=== PATIENT | female | born 1960 | race Caucasian/White ===

== ENCOUNTER 2017-03-19 14:24 | Outpatient (CLI) ==
[2012-10-31 09:43] VITALS: TEMP 97.6; BMI 23.9
--- NOTE | 2017-03-21 09:03 | MAMMO ---
EXAM: Bilateral digital screening mammogram (2-D and 3-D) History: Screening Comparison: Bilateral mammogram 02/09/2016 Findings: MLO and CC views of bilateral breast demonstrate scattered fibroglandular breast parenchym a. CAD was reviewed by the radiologist. Tomosynthesis was performed. Stable benign bilateral breas t calcifications is stable benign bilateral breast lymph nodes. There are no developing masses, no s uspicious microcalcifications and no architectural distortions Impression: Benign stable mammogram. Recommend followup routine screening mammography in 1 year. BIRADS 2
== END 2017-03-19 14:25 | disposition home or self-care (01) ==
LOC: RAD 14:24
PROVIDERS: ATTEND Family Medicine
DX: Z12.31 Encounter for screening mammogram for malignant neoplasm of breast (principal)
CPT/HCPCS: 77067

== ENCOUNTER 2018-03-04 14:21 | Outpatient (CLI) ==
[2012-10-31 09:43] VITALS: TEMP 97.6; BMI 23.9
--- NOTE | 2018-03-05 08:03 | US ---
EXAM: Ultrasound thyroid. HISTORY: Goiter. COMPARISON: 12/13/2011. TECHNIQUE: Javier-scale and color Doppler images. FINDINGS: The right lobe of the thyroid measures 4.6 x 2.2 x 2 cm. There is heterogeneous echogenicity with mul tiple nodules. The largest nodule is solid hypoechoic measuring approximately 1.9 x 1.38 x 0.9 cm wi th internal calcifications. The thyroid isthmus measures 1.2 cm. The left lobe of the thyroid measures 5.1 x 2 x 5 x 2 cm. There is heterogeneous echogenicity with m ultiple nodules. The largest nodule is solid hypoechoic with ill-defined margins measuring approxima tely 2.7 x 2 x 1.3 cm with internal calcifications. Since the prior study, the largest right-sided nodule appears new. The largest left nodule is not si gnificantly changed in size although the calcifications appear new. IMPRESSION: Bilateral thyroid nodules as described. Consider percutaneous sampling of the largest in each lobe g iven the interval change.
== END 2018-03-04 14:22 | disposition home or self-care (01) ==
LOC: RAD 14:21
PROVIDERS: ATTEND Family Medicine
DX: E04.9 Nontoxic goiter, unspecified (principal)

== ENCOUNTER 2018-04-01 15:03 | Outpatient (CLI) ==
[2012-10-31 09:43] VITALS: TEMP 97.6; BMI 23.9
--- NOTE | 2018-04-03 09:42 | MAMMO ---
EXAM: Bilateral digital screening mammogram (2-D and 3-D) History: Bilateral mammogram 03/19/2017 Findings: MLO and CC views of bilateral breasts demonstrate scattered fibroglandular breast parenchy ma. CAD was reviewed by the radiologist. Tomosynthesis was performed. Stable benign bilateral ro[address] st calcifications and stable benign bilateral breast lymph nodes. There are no developing masses, no suspicious microcalcifications and no architectural distortions Impression: Benign stable mammogram. Recommend followup routine screening mammography in 1 year. BIRADS 2
== END 2018-04-01 15:04 | disposition home or self-care (01) ==
LOC: RAD 15:03
PROVIDERS: ATTEND Family Medicine
DX: Z12.31 Encounter for screening mammogram for malignant neoplasm of breast (principal)

== ENCOUNTER 2018-06-03 08:16 | Emergency (ER) ==
[2018-06-03 08:26] VITALS: BP 135/76; TEMP 97.7; BMI 26.8
--- NOTE | 2018-06-03 08:51 | DI ---
EXAM: Two views of the chest. History: Cough. Findings: Heart size is normal. No focal consolidation. No appreciable pleural fluid and no pneumo thorax. No acute osseous abnormalities. Impression: No acute cardiopulmonary process
--- NOTE | 2018-06-03 09:12 | CT ---
EXAM: CT of the head without contrast History: Dizziness. Comparison: Head CT 10/31/2012 Technique: Multiplanar CT images through the head were obtained without the administration of IV con trast Findings: The visualized paranasal sinuses and mastoid air cells are clear in general. No acute calv arial abnormalities. Intracranially the ventricular and cisternal spaces are normal in size, shape and configuration for a patient of this age. No dominant mass or midline shift. No hydrocephalous. No acute intracranial hemorrhage or abnormal extraaxial fluid collections. Impression: No acute intracranial process.
--- NOTE | 2018-06-03 10:16 | ED.PDOC ---
General ED Provider: Dr. IVY BARBA Chief Complaint: Dizziness Stated Complaint: dizziness Time Seen by Physician: 08:30 (no injury reported seen with her nurse at all times ) Mode of Arrival: Walk-In Information Source: Patient Exam Limitations: No limitations Primary Care Provider: MAURA HAWKINS Referred to ED by: Other (no cva symptoms) Nursing and Triage Documentation Reviewed and Agree: Yes Does patient meet sepsis criteria?: No System Inflammatory Response Syndrome: Not Applicable Sepsis Protocol: For patient's 13 years and over: Temp is 96.8 and below OR 101 and greater Pulse >90 BPM Resp >20/minute Acutely Altered Mental Status Are patient's symptoms suggestive of a new infection, such as: -Pneumonia -Skin, Soft Tissue -Endocarditis -UTI -Bone, Joint Infection -Implantable Device -Acute Abdominal Infection -Wound Infection -Meningitis -Blood Stream Catheter Infection -Unknown Neurological Complaint Exam - Dizziness Complaint/Exam Last Known Well: 4 days Onset: Gradual Duration: present Symptoms Are: Resolved Timing: Intermittent Episodes Lasting: Days Initial Severity: Mild Current Severity: None Character: Reports: Dizzy Aggravating: Reports: Change in head position Alleviating: Reports: Rest Associated Signs and Symptoms: Denies: Nausea, Vomiting, Diaphoresis, Tinnitus, Chest pain, Short of air, Palpitations, Unsteady gait, GI blood loss, Visual changes, Decreased oral intake, Change in medication, Change in diet, OTC meds, Loss of balance Review of Systems - Review Of Systems Constitutional: Reports: No symptoms Eyes: Reports: No symptoms Ears, Nose, Mouth, Throat: Reports: No symptoms Respiratory: Reports: No symptoms Cardiac: Reports: No symptoms GI: Reports: No symptoms : Reports: No symptoms Musculoskeletal: Reports: No symptoms Skin: Reports: No symptoms Neurological: Reports: No symptoms Endocrine: Reports: No symptoms Hematologic/Lymphatic: Reports: No symptoms All Other Systems: Reviewed and Negative Past Medical History - Past Medical History Previously Healthy: Yes Endocrine: Reports: Dyslipidemia Cardiovascular: Reports: Hypertension Respiratory: Reports: None Hematological: Reports: None Gastrointestinal: Reports: None Genitourinary: Reports: None Neuro/Psych: Reports: None Musculoskeletal: Reports: None Cancer: Reports: None Last Menstrual Period: n/a - Surgical History General Surgical History: Reports: None - Family History Family History: Reports: None - Social History Smoking Status: Former smoker Hx Substance Use: No Alcohol Screening: None Physical Exam - Physical Exam Appearance: Well-appearing, No pain distress, Well-nourished Eyes: VANNESA, EOMI, Conjunctiva clear ENT: Ears normal, Nose normal, Oropharynx normal Respiratory: Airway patent, Breath sounds clear, Breath sounds equal, Respirations nonlabored Cardiovascular: RRR, Pulses normal, No rub, No murmur GI/: Soft, Nontender, No masses, Bowel sounds normal, No Organomegaly Musculoskeletal: Normal strength, ROM intact, No edema, No calf tenderness Skin: Warm, Dry, Normal color Neurological: Sensation intact, Motor intact, Reflexes intact, Cranial nerves intact, Alert, Oriented Psychiatric: Affect appropriate, Mood appropriate - NIH Stroke Scale 1a. Level of Consciousness: 0=Alert and keenly responsive 1b. Level of Consciousness Questions: 0=Answers correctly to two questions 1c. Level of Consciousness Commands: 0=Performs two tasks correctly 2. Best Gaze: 0=Normal 3. Visual: 0=No visual loss 4. Facial Palsy: 0=Normal 5a. Motor Left Arm: 0=No drift,arm holds 90 degrees for 10 sec., leg 30 degrees for 5 sec. 5b. Motor Right Arm: 0=No drift,arm holds 90 degrees for 10 sec., leg 30 degrees for 5 sec. 6a. Motor Left Le=No drift,arm holds 90 degrees for 10 sec., leg 30 degrees for 5 sec. 6b. Motor Right Le=No drift,arm holds 90 degrees for 10 sec., leg 30 degrees for 5 sec. 7. Limb Ataxia: 0=Absent 8. Sensory: 0=Normal 10. Dysarthria: 0=Normal 11. 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: Normal Rhythm: Sinus Ectopy: None - EKG Interpretation Rate: Normal Rhythm: Sinus Ectopy: None Social Circle: NL ST Segment: Normal Re-Evaluation - Re-Evaluation Time of Re-Evaluation: 08:30 Status: Improved Vital Signs Stable: Yes Pain Level: 0 Appearance: NAD Lungs: Clear Skin: Warm and Dry Neuro: Alert and Oriented X3 CV: RRR - Re-Evaluation Time of Re-Evaluation: 10:17 Status: Improved Vital Signs Stable: Yes Pain Level: 0 Appearance: NAD Skin: Warm and Dry Neuro: Alert and Oriented X3 CV: RRR (recheck neuro with nursing staff present no brain stem signs no gait issue no vision issue no motor issue) Physician Notification - Case Discussed Physician Notified: pmd Time of Notification: 10:18 (may go home with a close follow up by pmd) Critical Care Note - Critical Care Note Total Time (mins): 0 Course - Course Hematology/Chemistry: 06/03/18 08:25 06/03/18 08:25 Orders, Labs, Meds: Lab Review 06/03/18 06/03/18 06/03/18 08:25 08:25 08:25 WBC 9.87 RBC 5.00 Hgb 14.0 Hct 42.6 MCV 85.2 MCH 28.0 MCHC 32.9 RDW Coeff of Tiffanie 12.1 Plt Count 263 Immature Gran % (Auto) 0.7 Neut % (Auto) 63.0 Lymph % (Auto) 25.6 Bryan % (Auto) 6.7 Eos % (Auto) 2.8 Baso % (Auto) 1.2 Immature Gran # (Auto) 0.1 Neut # (Auto) 6.2 Lymph # (Auto) 2.5 Bryan # (Auto) 0.7 Eos # (Auto) 0.3 Baso # (Auto) 0.1 Sodium 137.2 Potassium 4.09 Chloride 101.8 Carbon Dioxide 27.9 Anion Gap 11.59 BUN 10.8 Creatinine 0.52 L Estimated GFR (MDRD) 121.00 BUN/Creatinine Ratio 20.76 Glucose 181.1 H Calcium 9.57 Total Bilirubin 0.49 AST 37.0 H ALT 38.5 H Alkaline Phosphatase 78.5 Total Creatine Kinase 54.0 Troponin I < 0.012 Total Protein 7.52 Albumin 4.56 Globulin 2.96 Albumin/Globulin Ratio 1.54 TSH 1.410 Free T4 0.90 Influ A Molecular Assay Influ B Molecular Assay 06/03/18 08:55 WBC RBC Hgb Hct MCV MCH MCHC RDW Coeff of Tiffanie Plt Count Immature Gran % (Auto) Neut % (Auto) Lymph % (Auto) Bryan % (Auto) Eos % (Auto) Baso % (Auto) Immature Gran # (Auto) Neut # (Auto) Lymph # (Auto) Bryan # (Auto) Eos # (Auto) Baso # (Auto) Sodium Potassium Chloride Carbon Dioxide Anion Gap BUN Creatinine Estimated GFR (MDRD) BUN/Creatinine Ratio Glucose Calcium Total Bilirubin AST ALT Alkaline Phosphatase Total Creatine Kinase Troponin I Total Protein Albumin Globulin Albumin/Globulin Ratio TSH Free T4 Influ A Molecular Assay Negative by naat Influ B Molecular Assay Negative by naat Orders Category Date Time Status EKG-(ED ONLY) Stat CARDIO 06/03/18 08:28 Ordered CBC W/ AUTO DIFF Stat LAB 06/03/18 08:27 Ordered COMPREHENSIVE METABOLIC PANEL Stat LAB 06/03/18 08:27 Ordered CREATINE KINASE Stat LAB 06/03/18 08:27 Ordered FLU A/B MOLECULAR Stat LAB 06/03/18 08:28 Uncollected FREE T4 (FREE THYROXINE) Stat LAB 06/03/18 08:28 Ordered THYROID STIMULATING HORMONE Stat LAB 06/03/18 08:25 Completed TROPONIN I Stat LAB 06/03/18 08:27 Ordered CHEST, 2 VIEWS PA & LAT Stat RADS 06/03/18 08:[address] HEAD W/O CONTRAST Stat RADS 06/03/18 08:28 Ordered Vital Signs: Temp Pulse Resp BP Pulse Ox 06/03/18 08:19 97.7 F 90 20 135/76 96 Departure - Departure Time of Disposition: 10:18 Disposition: HOME SELF-CARE Discharge Problem: Dizziness Instructions: Vertigo (ED), Dizziness (ED), Lightheadedness (ED), Near Syncope (ED) Condition: Good Pt referred to PMD for follow-up: Yes IPMP verified?: No Allergies/Adverse Reactions: Allergies Penicillins Adverse Reaction (Verified 06/03/18 08:24) Home Medications: Ambulatory Orders Metoprolol Tartrate [Lopressor] 25 mg PO BID 10/31/12 Cetirizine HCl [Zyrtec] 10 mg PO DAILY 05/04/14 Meclizine HCl [Antivert] 12.5 mg PO DAILY 08/03/14 Atorvastatin Calcium [Lipitor] 10 mg PO DAILY 04/05/15 Azelastine HCl [Astelin 0.1%] 1 spray NS DAILY 04/10/16 Duloxetine HCl 30 mg PO DAILY tab-cap 06/26/17 Estroven Mood \T\ Memory Caplet 400 mcg PO DIRECTED tab-cap 06/26/17 Gabapentin 300 mg PO BID tab-cap 06/26/17
== END 2018-06-03 10:40 | disposition home or self-care (01) ==
LOC: ED 08:16
DX: R42 Dizziness and giddiness (principal); J32.9 Chronic sinusitis, unspecified
CPT/HCPCS: 36415; 80053; 82550; 84439; 84443; 84484; 85025; 87502; 93005; 93010; 99283

== ENCOUNTER 2021-04-30 08:52 | Inpatient (IN) ==
[2021-04-30 09:21] LABS: ALANINE AMINOTRANSFERASE 104.1 U/L (0-35); ALBUMIN 4.61 g/dL (3.5-5.0); ALKALINE PHOSPHATASE 82.3 U/L (53-141); ASPARTATE AMINO TRANSFERASE 84.6 U/L (14-36); BILIRUBIN,TOTAL 0.35 mg/dL (0.2-1.3); BLOOD UREA NITROGEN 16.1 mg/dL (7-17); CALCIUM 8.75 mg/dL (8.4-10.2); CARBON DIOXIDE 30.7 mmol/L (22-30.0); CHLORIDE 100.4 mmol/L (98-107); CREATININE 0.67 mg/dL (0.60-1.30); POTASSIUM 3.89 mmol/L (3.5-5.1); SODIUM 138.2 mmol/L (134.5-145); TOTAL PROTEIN 7.64 g/dL (6.3-8.2)
--- NOTE | 2021-04-30 09:26 | ED.PDOC ---
General <MAURA CLARK DO - Last Filed: 05/01/21 16:19> ED Provider: Dr. MAURA CLARK Chief Complaint: Respiratory Complaint Stated Complaint: Respiratory Congestion/Hx pos Covid Time Seen by Provider: 04/30/21 09:23 Mode of Arrival: Walk-In Information Source: Patient Primary Care Provider: MAURA HAWKINS Nursing and Triage Documentation Reviewed and Agree: Yes Does patient meet sepsis criteria?: No System Inflammatory Response Syndrome: Not Applicable Sepsis Protocol: For patient's 13 years and over: Temp is 96.8 and below OR 101 and greater Pulse >90 BPM Resp >20/minute Acutely Altered Mental Status Are patient's symptoms suggestive of a new infection, such as: -Pneumonia -Skin, Soft Tissue -Endocarditis -UTI -Bone, Joint Infection -Implantable Device -Acute Abdominal Infection -Wound Infection -Meningitis -Blood Stream Catheter Infection -Unknown Respiratory Complaint Exam <MAURA CLARK DO - Last Filed: 05/01/21 16:19> Shortness of Air Complaint/Exam Onset/Duration: Recent dx Covid last week at [facility]. NO IV THERAPUY Symptoms Are: Still present Timing: Intermittent Initial Severity: Moderate Current Severity: Mild Character: Reports Dyspnea at rest Aggravating: Reports None Alleviating: Reports Oxygen Associated Signs and Symptoms: Reports Cough Review of Systems <DO Tiffany MONROE Last Filed: 05/01/21 16:19> Review Of Systems Constitutional: Reports Malaise and Weakness All Other Systems: Reviewed and Negative PFSH <MAURA CLARK DO - Last Filed: 05/01/21 16:19> Medical History (Updated 04/30/21 @ 16:44 by REINA SHAH RN) Chronic arthritis Collapsed lung Diabetes type 2, controlled Seasonal allergies Thyroid disease Tubal occlusion Tubal Family History Mother Cancer Thyroid disease FATHER Alcoholism Social History (Updated 04/30/21 @ 16:48 by REINA SHAH RN) Smoking and tobacco status: Former smoker Smoking status stop date: 05/21/99 How long ago did patient quit smokin Second hand smoke exposure: No Surgical History (Updated 04/30/21 @ 16:44 by REINA SHAH RN) History of lung surgery Female Reproductive History Menstrual Hx Hysterectomy: No Hx Tubal Ligation: No Physical Exam <MAURA CLARK DO - Last Filed: 05/01/21 16:19> Physical Exam Appearance: Reports Ill-appearing, No pain distress and Obese Ill-appearing: Mild Pain Distress: Mild Eyes: Reports VANNESA, EOMI, Conjunctiva clear, Conjunctiva inflammed and Conjunctiva pale ENT: Reports Ears normal, Nose normal and Oropharynx normal Neck: Supple Respiratory: Reports Airway patent, Breath sounds clear, Breath sounds equal and Breath sounds diminished Cardiovascular: Reports RRR, Pulses normal, No rub and No murmur GI/: Reports Soft, Nontender, No masses and Bowel sounds normal Musculoskeletal: Reports Normal strength, ROM intact, No edema and No calf tenderness Skin: Reports Warm, Dry and Normal color Neurological: Reports Sensation intact, Motor intact, Reflexes intact, Cranial nerves intact and Alert Psychiatric: Reports Affect appropriate and Mood appropriate Critical Care Note <MAURA CLARK DO - Last Filed: 05/01/21 16:19> Critical Care Note Total Critical Care Time (mins): 60 Course <MAURA CLARK DO - Last Filed: 05/01/21 16:19> Course Hematology/Chemistry: 05/01/21 07:14 05/01/21 07:14 Orders, Labs, Meds: Lab Review 04/30/21 04/30/21 04/30/21 07:30 08:50 08:50 WBC 5.61 RBC 4.47 Hgb 12.6 Hct 38.7 MCV 86.6 MCH 28.2 MCHC 32.6 RDW Coeff of Tiffanie 12.7 Plt Count 167 Immature Gran % (Auto) 1.1 Neut % (Auto) 68.2 Lymph % (Auto) 22.3 Collier % (Auto) 8.2 Eos % (Auto) 0.0 Baso % (Auto) 0.2 Neut # (Auto) 3.8 Lymph # (Auto) 1.3 Collier # (Auto) 0.5 Eos # (Auto) 0.0 Baso # (Auto) 0.0 Immature Gran # (Auto) 0.1 Puncture Site Base Excess O2 Saturation ABG pH ABG pCO2 ABG pO2 ABG HCO3 ABG Total CO2 Carlos Test Hemoglobin Oxyhemoglobin Carboxyhemoglobin Total Hemoglobin FiO2 % Sodium 138.2 Potassium 3.89 Chloride 100.4 Carbon Dioxide 30.7 H Anion Gap 10.99 BUN 16.1 Creatinine 0.67 Estimated GFR (MDRD) 89.00 BUN/Creatinine Ratio 24.02 Glucose 122.0 H Calcium 8.75 Total Bilirubin 0.35 AST 84.6 H ALT 104.1 H Alkaline Phosphatase 82.3 Total Protein 7.64 Albumin 4.61 Globulin 3.03 Albumin/Globulin Ratio 1.52 SARS CoV-2 RNA Rapid FRANC Positive H 04/30/21 10:40 WBC RBC Hgb Hct MCV MCH MCHC RDW Coeff of Tiffanie Plt Count Immature Gran % (Auto) Neut % (Auto) Lymph % (Auto) Collier % (Auto) Eos % (Auto) Baso % (Auto) Neut # (Auto) Lymph # (Auto) Collier # (Auto) Eos # (Auto) Baso # (Auto) Immature Gran # (Auto) Puncture Site Rr Base Excess 3.6 H O2 Saturation 90.1 L ABG pH 7.43 ABG pCO2 42.0 ABG pO2 57.0 L* ABG HCO3 27.9 ABG Total CO2 29.2 H Carlos Test Pos Hemoglobin 0.5 Oxyhemoglobin 90.3 L Carboxyhemoglobin 0 L Total Hemoglobin 12.1 FiO2 % 21.0 Sodium Potassium Chloride Carbon Dioxide Anion Gap BUN Creatinine Estimated GFR (MDRD) BUN/Creatinine Ratio Glucose Calcium Total Bilirubin AST ALT Alkaline Phosphatase Total Protein Albumin Globulin Albumin/Globulin Ratio SARS CoV-2 RNA Rapid FRANC Orders Category Date Time Status ADMIT PATIENT INPATIENT .TO SCU (MONITORED BED) ADMISSION 04/30/21 15:32 Active ABG DRAW REQUEST Stat CARDIO 04/30/21 10:04 Completed METERED DOSE INHALATION Routine CARDIO 04/30/21 11:39 Completed OXYGEN Routine CARDIO 04/30/21 10:53 Completed ACTIVITY .BR with BRP CARE 04/30/21 15:35 Active GIVE HS SNACK 2100 CARE 04/30/21 15:35 Active INTAKE & OUTPUT Q8HR CARE 04/30/21 15:35 Completed NPO REMINDER: IMAGING ONCE CARE 04/30/21 13:10 Completed TELEMETRY MONITORING TELE CARE 04/30/21 15:32 Active VITAL SIGNS Q4HR CARE 04/30/21 15:35 Completed HS SNACK DIETARY 04/30/21 Dinner Ordered ABG COOX Stat LAB 04/30/21 10:40 Completed CBC W/ AUTO DIFF DAILY@0600 LAB 05/01/21 07:14 Completed CBC W/ AUTO DIFF DAILY@0600 LAB 05/02/21 06:00 Ordered CBC W/ AUTO DIFF Stat LAB 04/30/21 08:50 Completed COMPREHENSIVE METABOLIC PANEL Stat LAB 04/30/21 08:50 Completed SARS COV-2 RNA RAPID FRANC Stat LAB 04/30/21 07:30 Completed Acetaminophen [Tylenol] MEDS 04/30/21 11:58 Discontinued 650 mg PO ONCE STA Acetaminophen [Tylenol] MEDS 04/30/21 15:34 Active 650 mg PO Q4H PRN Albuterol Inhaler(with Spacer) [Ventolin Hfa (Per Puff- MEDS 04/30/21 11:38 Discontinued with Spacer)] 2 puff IH ONCE ONE Azithromycin [Zithromax] MEDS 04/30/21 15:34 Discontinued 500 mg PO ONCE STA Ceftriaxone/D5w 1 gm Premix [Rocephin 1 gm/50 ml D5w] MEDS 04/30/21 16:00 Active 1 gm in 50 ml IV DAILY Dexamethasone Sod Phosphate [Decadron] MEDS 04/30/21 11:39 Discontinued 6 mg IVP ONCE STA Enoxaparin Sodium [Lovenox] MEDS 04/30/21 13:13 Discontinued 40 mg SUBCUT ONCE ONE Ondansetron HCl/Pf [Zofran 4 mg/2 ml] MEDS 04/30/21 15:34 Active 4 mg IVP Q6H PRN Sodium Chloride 0.9% [Sodium Chloride] 1,000 ml MEDS 04/30/21 16:00 Active IV 75 mls/hr RESUSCITATION STATUS Routine OTHERS 04/30/21 15:[address] CHEST PE PROTOCOL Stat RADS 04/30/21 13:07 Completed CXR [CHEST, 1V AP ONLY] Stat RADS 04/30/21 08:59 Completed PT CONSULT Routine THERAPIES 04/30/21 Ordered Medications Generic Name Dose Route Start Last Admin Trade Name Freq PRN Reason Stop Dose Admin Acetaminophen 650 mg 04/30/21 15:34 05/01/21 00:27 Acetaminophen 325 Mg Tablet PO 650 mg Q4H PRN Administration Fever >101 Atorvastatin Calcium 10 mg 05/01/21 09:00 05/01/21 09:41 Atorvastatin Calcium 10 Mg Tablet PO 10 mg DAILY ANA Administration Azelastine HCl 1 spray 05/01/21 09:00 05/01/21 09:40 Azelastine Hcl 30 Ml Nasal [place] JAREK 1 spray DAILY ANA Administration Azithromycin 500 mg 04/30/21 16:30 05/01/21 09:41 Azithromycin 250 Mg Tablet PO 05/03/21 09:01 500 mg DAILY ANA Administration Dexamethasone Sodium Phosphate 6 mg 05/01/21 09:00 05/01/21 09:51 Dexamethasone Sod Phos 10 Mg/Ml Inj IVP 6 mg DAILY ANA Administration Duloxetine HCl 30 mg 05/01/21 09:00 05/01/21 09:41 Duloxetine Hcl 30 Mg Capsule.Dr PO 30 mg DAILY ANA Administration Enoxaparin Sodium 40 mg 05/01/21 09:00 05/01/21 09:43 Enoxaparin Sodium 40 Mg/0.4 Ml Syr SUBCUT 40 mg DAILY ANA Administration Gabapentin 300 mg 05/01/21 09:00 05/01/21 09:41 Gabapentin 300 Mg Capsule PO 300 mg DAILY ANA Administration Guaifenesin/Dextromethorphan 10 ml 04/30/21 23:31 05/01/21 09:50 Guaifenesin/Dextromethorphan 200/20 Mg/10 Ml Cup PO 10 ml Q6HR PRN Administration Cough Sodium Chloride 1,000 mls @ 75 mls/hr 04/30/21 16:00 05/01/21 06:11 Sodium Chloride IV 75 mls/hr .[id number] ANA Administration CEFTRIAXONE/D5W 1 GM PREMIX 1 gm in 50 mls @ 75 mls/hr 04/30/21 16:00 05/01/21 09:43 Rocephin 1 Gm/50 Ml D5w IV 05/03/21 15:59 75 mls/hr DAILY ANA Administration Loratadine 10 mg 05/01/21 09:00 05/01/21 09:41 Loratadine 10 Mg Tablet PO 10 mg DAILY ANA Administration Metformin HCl 500 mg 04/30/21 21:00 05/01/21 09:40 Metformin Hcl 500 Mg Tablet PO 500 mg BID ANA Administration Metoprolol Tartrate 25 mg 04/30/21 21:00 05/01/21 09:40 Metoprolol Tartrate 25 Mg Tablet PO 25 mg BID ANA Administration Ondansetron HCl 4 mg 04/30/21 15:34 Ondansetron Hcl/Pf 4 Mg/2 Ml Sdv IVP Q6H PRN Nausea / Vomiting Discontinued Medications Generic Name Dose Route Start Last Admin Trade Name Freq PRN Reason Stop Dose Admin Acetaminophen 650 mg 04/30/21 11:58 04/30/21 12:37 Acetaminophen 325 Mg Tablet PO 04/30/21 11:59 650 mg ONCE STA Administration Albuterol Sulfate 2 puff 04/30/21 11:38 04/30/21 11:57 Albuterol Sulfate (Ventolin Hfa) 18 Gm 1 Puff With Spacer IH 04/30/21 11:39 2 puff ONCE ONE Administration Azithromycin 500 mg 04/30/21 15:34 04/30/21 15:54 Azithromycin 250 Mg Tablet PO 04/30/21 15:35 500 mg ONCE STA Administration Dexamethasone Sodium Phosphate 6 mg 04/30/21 11:39 04/30/21 11:45 Dexamethasone Sod Phos 10 Mg/Ml Inj IVP 04/30/21 11:40 10 mg ONCE STA Administration Enoxaparin Sodium 40 mg 04/30/21 13:13 04/30/21 13:41 Enoxaparin Sodium 40 Mg/0.4 Ml Syr SUBCUT 04/30/21 13:14 40 mg ONCE ONE Administration Vital Signs: Temp Pulse Resp BP Pulse Ox 04/30/21 15:04 82 22 101/60 95 04/30/21 12:40 82 20 100/60 95 04/30/21 11:10 88 22 118/61 93 L 04/30/21 09:50 87 20 110/58 L 92 L 04/30/21 08:52 98.5 F 84 22 109/58 L 96 Discharge Plan Discharge Patient Disposition: ADMITTED INPATIENT Discharge Problem: COVID ED Provider: MAURA CLARK Condition: Stable <MAURA CLARK DO - Last Filed: 05/01/21 16:19> Physician Progress Note: []
[2021-04-30 09:28] LABS: BASOPHILS % (AUTO) 0.2 % (0.0-3.0); HEMATOCRIT 38.7 % (37.0-47.0); HEMOGLOBIN 12.6 g/dl (12.0-16.0); IMMATURE GRANULOCYTE # (AUTO) 0.1 (0.0-1.0); IMMATURE GRANULOCYTE % (AUTO) 1.1 % (0.0-5.0); LYMPHOCYTES # (AUTO) 1.3 K/uL (0.60-3.4); LYMPHOCYTES % (AUTO) 22.3 (10.0-50.0); MEAN CORPUSCULAR HEMOGLOBIN 28.2 pg (27.0-31.0); MEAN CORPUSCULAR HGB CONC 32.6 (31.8-35.4); MEAN CORPUSCULAR VOLUME 86.6 fl (81.0-99.0); MONOCYTES # (AUTO) 0.5 K/uL (0.4-2.0); MONOCYTES % (AUTO) 8.2 (0-10); NEUTROPHILS # (AUTO) 3.8 K/ul (2.0-6.9); NEUTROPHILS % (AUTO) 68.2 % (42.2-75.2); PLATELET COUNT 167 10^3/uL (140-440); RDW COEFFICIENT OF VARIATION 12.7 % (11.6-14.8); RED BLOOD COUNT 4.47 10^6/ul (4.20-5.40); WHITE BLOOD COUNT 5.61 K/ul (4.6-10.2)
--- NOTE | 2021-04-30 09:31 | DI ---
EXAM: One-view chest HISTORY: Shortness of breath, COVID-19 TECHNIQUE: Single frontal view the chest was obtained. Comparison 06/03/2018. FINDINGS: The heart is stable size. Lungs are clear. The pulmonary vasculature appears normal. Th e costophrenic angles are sharp. IMPRESSION: No active cardiopulmonary disease.
[2021-04-30 10:47] LABS: ABG O2 HGB 90.3 % (95-100); ABG PH 7.43 (7.35-7.45); BEecf 3.6 (-2.0-3.0); COHb 0 (0.5-1.5); HCO3 27.9 (21-28); MetHb 0.5 (0-1.5); TCO2 29.2 (19-24); sO2 90.1 % (94-98); tHb 12.1 g/dl (11.7-17.4)
[2021-04-30] MEDS ORDERED: VENTOLIN HFA (PER PUFF-WITH SPACER) IH ONE (11:38)
[2021-04-30] MEDS ORDERED: DECADRON IVP STA (11:39)
[2021-04-30] MEDS ORDERED: TYLENOL PO STA (11:58)
[2021-04-30] MEDS ORDERED: LOVENOX SUBCUT ONE (13:13)
--- NOTE | 2021-04-30 14:00 | CT ---
EXAM: CTA chest for PE HISTORY: COVID-19 patient with hypoxia COMPARISON: Chest x-ray same day and multiple priors TECHNIQUE: CTA of the chest was performed from the lung apices to the upper abdomen after 75 ml of O mnipaque IV contrast was administered using PE protocol. 3-D imaging was also provided. FINDINGS: There is no filling defect in the pulmonary arteries to the level of the subsegmental pulm onary arteries. The heart is normal without signs of ventricular strain. The aorta is unremarkable. The thyroid is heterogeneous and mildly enlarged. The heart is normal without pericardial fluid. There are nonenlarged mediastinal and hilar lymph nodes. There is no pneumothorax or effusion. There is severe emphysema with bibasilar atelectasis. There i s no abnormal ground-glass. The airways are patent Limited views of the soft tissues in the upper abdomen are unremarkable. The osseous structures demo nstrate multilevel degenerative disease. IMPRESSION: 1. Pulmonary embolism. 2. Severe emphysema with bibasilar atelectasis. All CT scans are performed using dose optimization techniques as appropriate to the performed exam an d include at least one of the following: Automated exposure control, adjustment of the mA and/or kV according t o size, and the use of iterative reconstruction technique.
[2021-04-30] MEDS ORDERED: ZOFRAN 4 MG/2 ML IVP PRN ×2 (15:34→16:10)
[2021-04-30] MEDS ORDERED: ZITHROMAX PO STA (15:34)
[2021-04-30] MEDS ORDERED: LOVENOX SUBCUT SCH (16:00)
[2021-04-30] MEDS ORDERED: SODIUM CHLORIDE 1,000 ML IV SCH (16:30)
[2021-04-30 16:33] VITALS: BMI 23.9
[2021-04-30] MEDS: SODIUM CHLORIDE 1,000 ML IV SCH (16:49)
[2021-04-30] MEDS: ZITHROMAX PO SCH (17:10)
[2021-04-30] MEDS: ROCEPHIN 1 GM/50 ML D5W 1 GM/50 ML BAG IV SCH (17:47)
[2021-04-30] MEDS ORDERED: DECADRON IVP SCH (21:00)
[2021-04-30] MEDS: LOPRESSOR PO SCH (21:03)
[2021-04-30] MEDS: GLUCOPHAGE PO SCH (21:03)
[2021-05-01] MEDS: ROBITUSSIN DM SYRUP PO PRN ×3 (00:26→20:42)
[2021-05-01] MEDS: TYLENOL PO PRN ×2 (00:27→20:43)
[2021-05-01] MEDS: SODIUM CHLORIDE 1,000 ML IV SCH ×2 (06:11→20:41)
[2021-05-01 07:31] LABS: BASOPHILS % (AUTO) 0.2 % (0.0-3.0); HEMATOCRIT 36.4 % (37.0-47.0); HEMOGLOBIN 11.6 g/dl (12.0-16.0); IMMATURE GRANULOCYTE # (AUTO) 0.1 (0.0-1.0); IMMATURE GRANULOCYTE % (AUTO) 1.3 % (0.0-5.0); LYMPHOCYTES # (AUTO) 1.1 K/uL (0.60-3.4); LYMPHOCYTES % (AUTO) 17.7 (10.0-50.0); MEAN CORPUSCULAR HEMOGLOBIN 28.3 pg (27.0-31.0); MEAN CORPUSCULAR HGB CONC 31.9 (31.8-35.4); MEAN CORPUSCULAR VOLUME 88.8 fl (81.0-99.0); MONOCYTES # (AUTO) 0.6 K/uL (0.4-2.0); MONOCYTES % (AUTO) 9.2 (0-10); NEUTROPHILS # (AUTO) 4.6 K/ul (2.0-6.9); NEUTROPHILS % (AUTO) 71.6 % (42.2-75.2); PLATELET COUNT 161 10^3/uL (140-440); RDW COEFFICIENT OF VARIATION 12.6 % (11.6-14.8); WHITE BLOOD COUNT 6.39 K/ul (4.6-10.2)
[2021-05-01 07:45] LABS: ALANINE AMINOTRANSFERASE 75.8 U/L (0-35); ALBUMIN 3.97 g/dL (3.5-5.0); ALKALINE PHOSPHATASE 67.2 U/L (53-141); ASPARTATE AMINO TRANSFERASE 52.5 U/L (14-36); BILIRUBIN,TOTAL 0.29 mg/dL (0.2-1.3); BLOOD UREA NITROGEN 17.9 mg/dL (7-17); CALCIUM 8.53 mg/dL (8.4-10.2); CARBON DIOXIDE 25.9 mmol/L (22-30.0); CHLORIDE 110.9 mmol/L (98-107); CREATININE 0.48 mg/dL (0.60-1.30); GLUCOSE 117.7 mg/dL (74-106); POTASSIUM 3.94 mmol/L (3.5-5.1); PROTHROMBIN TIME 9.6 SEC (9.3-11.0); SODIUM 141.2 mmol/L (134.5-145); TOTAL PROTEIN 6.79 g/dL (6.3-8.2)
[2021-05-01] MEDS: ASTELIN 0.1% NAS SCH (09:40)
[2021-05-01] MEDS: GLUCOPHAGE PO SCH ×2 (09:40→20:45)
[2021-05-01] MEDS: LOPRESSOR PO SCH ×2 (09:40→22:50)
[2021-05-01] MEDS: CYMBALTA PO SCH (09:41)
[2021-05-01] MEDS: ZITHROMAX PO SCH (09:41)
[2021-05-01] MEDS: NEURONTIN PO SCH (09:41)
[2021-05-01] MEDS: CLARITIN PO SCH (09:41)
[2021-05-01] MEDS: LIPITOR PO SCH (09:41)
[2021-05-01] MEDS: ROCEPHIN 1 GM/50 ML D5W 1 GM/50 ML BAG IV SCH (09:43)
[2021-05-01] MEDS: LOVENOX SUBCUT SCH (09:43)
[2021-05-01] MEDS: DECADRON IVP SCH (09:51)
[2021-05-02 05:02] LABS: BASOPHILS % (AUTO) 0.3 % (0.0-3.0); HEMOGLOBIN 11.3 g/dl (12.0-16.0); IMMATURE GRANULOCYTE # (AUTO) 0.1 (0.0-1.0); LYMPHOCYTES # (AUTO) 1.5 K/uL (0.60-3.4); MEAN CORPUSCULAR HEMOGLOBIN 28.9 pg (27.0-31.0); MEAN CORPUSCULAR HGB CONC 32.3 (31.8-35.4); MEAN CORPUSCULAR VOLUME 89.5 fl (81.0-99.0); MONOCYTES # (AUTO) 0.7 K/uL (0.4-2.0); MONOCYTES % (AUTO) 6.2 (0-10); NEUTROPHILS % (AUTO) 79.5 % (42.2-75.2); PLATELET COUNT 184 10^3/uL (140-440); RDW COEFFICIENT OF VARIATION 12.6 % (11.6-14.8); RED BLOOD COUNT 3.91 10^6/ul (4.20-5.40); WHITE BLOOD COUNT 11.26 K/ul (4.6-10.2)
[2021-05-02 05:22] LABS: ALANINE AMINOTRANSFERASE 74.8 U/L (0-35); ALBUMIN 3.72 g/dL (3.5-5.0); ALKALINE PHOSPHATASE 65.2 U/L (53-141); ASPARTATE AMINO TRANSFERASE 52.4 U/L (14-36); BILIRUBIN,TOTAL 0.25 mg/dL (0.2-1.3); BLOOD UREA NITROGEN 16.5 mg/dL (7-17); CALCIUM 8.52 mg/dL (8.4-10.2); CARBON DIOXIDE 26.3 mmol/L (22-30.0); CHLORIDE 111.5 mmol/L (98-107); CREATININE 0.57 mg/dL (0.60-1.30); GLUCOSE 113.1 mg/dL (74-106); POTASSIUM 3.87 mmol/L (3.5-5.1); SODIUM 143.2 mmol/L (134.5-145); TOTAL PROTEIN 6.34 g/dL (6.3-8.2)
[2021-05-02 05:30] LABS: PROTHROMBIN TIME 9.4 SEC (9.3-11.0)
[2021-05-02] MEDS: LOVENOX SUBCUT SCH (09:16)
[2021-05-02] MEDS: CLARITIN PO SCH (09:17)
[2021-05-02] MEDS: CYMBALTA PO SCH (09:17)
[2021-05-02] MEDS: NEURONTIN PO SCH (09:17)
[2021-05-02] MEDS: ZITHROMAX PO SCH (09:17)
[2021-05-02] MEDS: GLUCOPHAGE PO SCH ×2 (09:17→20:18)
[2021-05-02] MEDS: LIPITOR PO SCH (09:17)
[2021-05-02] MEDS: LOPRESSOR PO SCH ×2 (09:17→20:18)
[2021-05-02] MEDS: DECADRON IVP SCH (09:18)
[2021-05-02] MEDS: SODIUM CHLORIDE 1,000 ML IV SCH (09:19)
[2021-05-02] MEDS: ASTELIN 0.1% NAS SCH (09:22)
[2021-05-02] MEDS: ROCEPHIN 1 GM/50 ML D5W 1 GM/50 ML BAG IV SCH (09:29)
[2021-05-02] MEDS ORDERED: VEKLURY 200 MG in SODIUM CHLORIDE 250 ML IV ONE (12:41)
[2021-05-02 13:06] LABS: ABG O2 HGB 94.2 % (95-100); ABG PH 7.42 (7.35-7.45); BEecf 0.1 (-2.0-3.0); COHb 0.4 (0.5-1.5); HCO3 24.6 (21-28); MetHb 0 (0-1.5); TCO2 25.8 (19-24); sO2 96.5 % (94-98); tHb 11.9 g/dl (11.7-17.4)
[2021-05-02] MEDS: VENTOLIN HFA (PER PUFF-WITH SPACER) IH SCH ×2 (14:41→20:05)
[2021-05-02] MEDS: VITAMIN D PO SCH (14:45)
[2021-05-02] MEDS: ZINC-220 PO SCH (14:45)
--- NOTE | 2021-05-02 16:41 | PCM.PROG ---
pt admitted w/ covid, vss, nad, doing well today, on supplemental oxygen, no PE on Chest CT, undergoing covid protochol, treatment d/w Dr Paredes, +appetite. heent: eomi, buccal moist lungs: clear heart: RRR abdomen: soft and nontender extremities: toño plan: albuterol q6 prn, start Remdesivir, continue covid protochol including dexamethasone, rocephin, zithromax, lovenox care to Dr Marks at 19:00
[2021-05-02] MEDS: PEPCID PO SCH (17:34)
[2021-05-02] MEDS: ROBITUSSIN DM SYRUP PO PRN (18:22)
[2021-05-02] MEDS: SYMBICORT 160-4.5 MCG INHALER IH SCH (20:18)
[2021-05-03] MEDS: SODIUM CHLORIDE 1,000 ML IV SCH ×2 (02:14→12:38)
[2021-05-03] MEDS: VENTOLIN HFA (PER PUFF-WITH SPACER) IH SCH ×3 (05:05→19:45)
[2021-05-03 05:10] LABS: BASOPHILS % (AUTO) 0.3 % (0.0-3.0); HEMATOCRIT 34.3 % (37.0-47.0); IMMATURE GRANULOCYTE # (AUTO) 0.3 (0.0-1.0); IMMATURE GRANULOCYTE % (AUTO) 2.5 % (0.0-5.0); LYMPHOCYTES # (AUTO) 1.4 K/uL (0.60-3.4); LYMPHOCYTES % (AUTO) 13.4 (10.0-50.0); MEAN CORPUSCULAR HEMOGLOBIN 28.5 pg (27.0-31.0); MEAN CORPUSCULAR HGB CONC 32.1 (31.8-35.4); MEAN CORPUSCULAR VOLUME 88.9 fl (81.0-99.0); MONOCYTES # (AUTO) 0.9 K/uL (0.4-2.0); MONOCYTES % (AUTO) 8.5 (0-10); NEUTROPHILS # (AUTO) 7.8 K/ul (2.0-6.9); NEUTROPHILS % (AUTO) 75.3 % (42.2-75.2); PLATELET COUNT 213 10^3/uL (140-440); RDW COEFFICIENT OF VARIATION 12.5 % (11.6-14.8); RED BLOOD COUNT 3.86 10^6/ul (4.20-5.40); WHITE BLOOD COUNT 10.35 K/ul (4.6-10.2)
[2021-05-03 05:29] LABS: ALANINE AMINOTRANSFERASE 62.6 U/L (0-35); ALBUMIN 3.67 g/dL (3.5-5.0); ALKALINE PHOSPHATASE 65.9 U/L (53-141); ASPARTATE AMINO TRANSFERASE 36.8 U/L (14-36); BILIRUBIN,TOTAL 0.29 mg/dL (0.2-1.3); BLOOD UREA NITROGEN 19.1 mg/dL (7-17); CALCIUM 8.75 mg/dL (8.4-10.2); CARBON DIOXIDE 28.5 mmol/L (22-30.0); CHLORIDE 107.6 mmol/L (98-107); CREATININE 0.72 mg/dL (0.60-1.30); GLUCOSE 109.6 mg/dL (74-106); POTASSIUM 4.14 mmol/L (3.5-5.1); SODIUM 142.3 mmol/L (134.5-145); TOTAL PROTEIN 6.54 g/dL (6.3-8.2)
[2021-05-03 05:31] LABS: PROTHROMBIN TIME 9.9 SEC (9.3-11.0)
[2021-05-03] MEDS: PEPCID PO SCH ×2 (05:34→17:09)
[2021-05-03 05:39] LABS: TROPONIN I < 0.012 ng/ml (0.0000-0.120)
[2021-05-03 06:42] LABS: ABG O2 HGB 90.6 % (95-100); ABG PH 7.45 (7.35-7.45); BEecf 2.4 (-2.0-3.0); COHb 1.2 (0.5-1.5); HCO3 26.4 (21-28); MetHb 0 (0-1.5); TCO2 27.6 (19-24); sO2 90.6 % (94-98); tHb 10.8 g/dl (11.7-17.4)
[2021-05-03] MEDS: DECADRON IVP SCH (09:13)
[2021-05-03] MEDS: VITAMIN D PO SCH (09:16)
[2021-05-03] MEDS: CLARITIN PO SCH (09:16)
[2021-05-03] MEDS: CYMBALTA PO SCH (09:16)
[2021-05-03] MEDS: ZITHROMAX PO SCH (09:16)
[2021-05-03] MEDS: ROCEPHIN 1 GM/50 ML D5W 1 GM/50 ML BAG IV SCH (09:16)
[2021-05-03] MEDS: ZINC-220 PO SCH (09:16)
[2021-05-03] MEDS: NEURONTIN PO SCH (09:17)
[2021-05-03] MEDS: GLUCOPHAGE PO SCH ×2 (09:17→17:09)
[2021-05-03] MEDS: LIPITOR PO SCH (09:17)
[2021-05-03] MEDS: ASTELIN 0.1% NAS SCH (09:17)
[2021-05-03] MEDS: LOPRESSOR PO SCH ×2 (09:18→20:56)
[2021-05-03] MEDS: LOVENOX SUBCUT SCH (09:18)
[2021-05-03] MEDS: SYMBICORT 160-4.5 MCG INHALER IH SCH ×2 (09:18→20:56)
[2021-05-03] MEDS: VEKLURY 100 MG in SODIUM CHLORIDE 250 ML IV SCH (11:20)
[2021-05-04 04:20] LABS: C-REACTIVE PROTEIN 12 mg/L (0-10)
[2021-05-04] MEDS: VENTOLIN HFA (PER PUFF-WITH SPACER) IH SCH ×3 (05:20→20:05)
[2021-05-04 05:37] LABS: BASOPHILS # (AUTO) 0.1 K/uL (0-0.2); BASOPHILS % (AUTO) 0.9 % (0.0-3.0); HEMATOCRIT 35.8 % (37.0-47.0); HEMOGLOBIN 11.6 g/dl (12.0-16.0); IMMATURE GRANULOCYTE # (AUTO) 0.8 (0.0-1.0); IMMATURE GRANULOCYTE % (AUTO) 8.3 % (0.0-5.0); LYMPHOCYTES # (AUTO) 1.5 K/uL (0.60-3.4); LYMPHOCYTES % (AUTO) 16.7 (10.0-50.0); MEAN CORPUSCULAR HGB CONC 32.4 (31.8-35.4); MEAN CORPUSCULAR VOLUME 86.3 fl (81.0-99.0); MONOCYTES % (AUTO) 10.4 (0-10); NEUTROPHILS # (AUTO) 5.8 K/ul (2.0-6.9); NEUTROPHILS % (AUTO) 63.7 % (42.2-75.2); PLATELET COUNT 257 10^3/uL (140-440); RDW COEFFICIENT OF VARIATION 12.2 % (11.6-14.8); RED BLOOD COUNT 4.15 10^6/ul (4.20-5.40); WHITE BLOOD COUNT 9.16 K/ul (4.6-10.2)
[2021-05-04 05:52] LABS: ALANINE AMINOTRANSFERASE 53.4 U/L (0-35); ALBUMIN 3.81 g/dL (3.5-5.0); ALKALINE PHOSPHATASE 65.8 U/L (53-141); ASPARTATE AMINO TRANSFERASE 30.4 U/L (14-36); BILIRUBIN,TOTAL 0.29 mg/dL (0.2-1.3); CALCIUM 8.89 mg/dL (8.4-10.2); CARBON DIOXIDE 26.9 mmol/L (22-30.0); CHLORIDE 106.7 mmol/L (98-107); CREATININE 0.56 mg/dL (0.60-1.30); GLUCOSE 115.5 mg/dL (74-106); POTASSIUM 3.88 mmol/L (3.5-5.1); SODIUM 140.7 mmol/L (134.5-145); TOTAL PROTEIN 6.53 g/dL (6.3-8.2)
[2021-05-04] MEDS: TYLENOL PO PRN (05:54)
[2021-05-04] MEDS: PEPCID PO SCH ×2 (05:54→17:06)
[2021-05-04 06:07] LABS: TROPONIN I < 0.012 ng/ml (0.0000-0.120)
[2021-05-04 06:14] LABS: PROTHROMBIN TIME 10.5 SEC (9.3-11.0)
[2021-05-04 06:57] LABS: ABG O2 HGB 89.9 % (95-100); ABG PH 7.45 (7.35-7.45); BEecf 2.4 (-2.0-3.0); COHb 0.2 (0.5-1.5); HCO3 26.4 (21-28); MetHb 0.3 (0-1.5); TCO2 27.6 (19-24)
[2021-05-04] MEDS: VITAMIN D PO SCH (09:00)
[2021-05-04] MEDS: ASTELIN 0.1% NAS SCH (09:00)
[2021-05-04] MEDS: SYMBICORT 160-4.5 MCG INHALER IH SCH ×2 (09:00→21:07)
[2021-05-04] MEDS: CLARITIN PO SCH (09:01)
[2021-05-04] MEDS: CYMBALTA PO SCH (09:01)
[2021-05-04] MEDS: GLUCOPHAGE PO SCH ×2 (09:02→17:06)
[2021-05-04] MEDS: ZINC-220 PO SCH (09:02)
[2021-05-04] MEDS: NEURONTIN PO SCH (09:02)
[2021-05-04] MEDS: LOPRESSOR PO SCH ×2 (09:02→21:07)
[2021-05-04] MEDS: LIPITOR PO SCH (09:02)
[2021-05-04] MEDS: DECADRON IVP SCH (09:03)
[2021-05-04] MEDS: LOVENOX SUBCUT SCH (09:04)
[2021-05-04] MEDS: VEKLURY 100 MG in SODIUM CHLORIDE 250 ML IV SCH (12:45)
[2021-05-05 04:10] LABS: C-REACTIVE PROTEIN 6 mg/L (0-10)
[2021-05-05] MEDS: PEPCID PO SCH ×2 (05:36→18:19)
[2021-05-05 06:10] LABS: ALANINE AMINOTRANSFERASE 53.3 U/L (0-35); ALBUMIN 3.77 g/dL (3.5-5.0); ALKALINE PHOSPHATASE 62.4 U/L (53-141); ASPARTATE AMINO TRANSFERASE 29.8 U/L (14-36); BILIRUBIN,TOTAL 0.43 mg/dL (0.2-1.3); BLOOD UREA NITROGEN 22.6 mg/dL (7-17); CALCIUM 8.83 mg/dL (8.4-10.2); CARBON DIOXIDE 25.8 mmol/L (22-30.0); CHLORIDE 106.2 mmol/L (98-107); CREATININE 0.53 mg/dL (0.60-1.30); GLUCOSE 127.1 mg/dL (74-106); POTASSIUM 4.1 mmol/L (3.5-5.1); SODIUM 139.8 mmol/L (134.5-145); TOTAL PROTEIN 6.54 g/dL (6.3-8.2)
[2021-05-05 06:13] LABS: PROTHROMBIN TIME 10.9 SEC (9.3-11.0)
[2021-05-05 06:30] LABS: TROPONIN I < 0.012 ng/ml (0.0000-0.120)
[2021-05-05] MEDS: VENTOLIN HFA (PER PUFF-WITH SPACER) IH SCH ×3 (07:15→20:10)
[2021-05-05 07:17] LABS: ABG O2 HGB 93.4 % (95-100); ABG PH 7.43 (7.35-7.45); BEecf 0.9 (-2.0-3.0); COHb 0.5 (0.5-1.5); HCO3 25.2 (21-28); MetHb 0.1 (0-1.5); TCO2 26.4 (19-24); sO2 94.7 % (94-98); tHb 12.1 g/dl (11.7-17.4)
[2021-05-05] MEDS: ASTELIN 0.1% NAS SCH (08:28)
[2021-05-05] MEDS: SYMBICORT 160-4.5 MCG INHALER IH SCH ×2 (08:28→21:08)
[2021-05-05] MEDS: DECADRON IVP SCH (08:29)
[2021-05-05] MEDS: ZINC-220 PO SCH (08:29)
[2021-05-05] MEDS: NEURONTIN PO SCH (08:29)
[2021-05-05] MEDS: VITAMIN D PO SCH (08:29)
[2021-05-05] MEDS: CLARITIN PO SCH (08:29)
[2021-05-05] MEDS: LOPRESSOR PO SCH ×2 (08:29→21:04)
[2021-05-05] MEDS: LIPITOR PO SCH (08:30)
[2021-05-05] MEDS: CYMBALTA PO SCH (08:30)
[2021-05-05] MEDS: LOVENOX SUBCUT SCH (08:30)
[2021-05-05] MEDS: GLUCOPHAGE PO SCH ×2 (08:30→18:19)
[2021-05-05] MEDS: VEKLURY 100 MG in SODIUM CHLORIDE 250 ML IV SCH (12:46)
[2021-05-06] MEDS: VENTOLIN HFA (PER PUFF-WITH SPACER) IH SCH ×3 (05:15→21:05)
[2021-05-06] MEDS: PEPCID PO SCH ×2 (06:11→16:53)
[2021-05-06 06:26] LABS: C-REACTIVE PROTEIN 3 mg/L (0-10)
[2021-05-06 06:54] LABS: ALANINE AMINOTRANSFERASE 48.9 U/L (0-35); ALBUMIN 3.91 g/dL (3.5-5.0); ALKALINE PHOSPHATASE 62.9 U/L (53-141); ASPARTATE AMINO TRANSFERASE 30.4 U/L (14-36); BILIRUBIN,TOTAL 0.46 mg/dL (0.2-1.3); BLOOD UREA NITROGEN 21.9 mg/dL (7-17); CALCIUM 9.18 mg/dL (8.4-10.2); CARBON DIOXIDE 27.3 mmol/L (22-30.0); CHLORIDE 104.9 mmol/L (98-107); CREATININE 0.6 mg/dL (0.60-1.30); GLUCOSE 112.5 mg/dL (74-106); POTASSIUM 4.01 mmol/L (3.5-5.1); SODIUM 138.9 mmol/L (134.5-145); TOTAL PROTEIN 6.81 g/dL (6.3-8.2)
[2021-05-06 06:58] LABS: TROPONIN I < 0.012 ng/ml (0.0000-0.120)
--- NOTE | 2021-05-06 08:25 | PCM.PROG ---
Date Seen by Provider: 05/06/21 Time Seen by Provider: 08:00 Subjective: Pt admitted for Covid 19. Currently finishing infusion today. She is feeling much better but still with a cough. Has no one at home to help care for her till tomorrow. Still on 2L NC. No F/C/CP/AP. Mild SOB. Objective: Vitals: T=97.6 F, P=71, R=16, XN=486/71, SPO2=97 Lungs: No resp distress with an occasional rale CVS: RRR Abdomen: soft, non tender Neurological: A+O x3 Lab/Tests/Diagnostic Imaging: Chems unremarkable. Plan: 1. Covid: Pt improving. Finishing infusion today. Will try to start weening O2 today to see how she does. If she fails, will do 3 Step tomorrow to see if she qualifies for outpatient oxygen. Anticipate DC tomorrow or the next day.
[2021-05-06] MEDS: SYMBICORT 160-4.5 MCG INHALER IH SCH ×2 (09:19→20:27)
[2021-05-06] MEDS: ASTELIN 0.1% NAS SCH (09:19)
[2021-05-06] MEDS: LOVENOX SUBCUT SCH (09:19)
[2021-05-06] MEDS: CYMBALTA PO SCH (09:20)
[2021-05-06] MEDS: ZINC-220 PO SCH (09:20)
[2021-05-06] MEDS: VITAMIN D PO SCH (09:20)
[2021-05-06] MEDS: CLARITIN PO SCH (09:20)
[2021-05-06] MEDS: GLUCOPHAGE PO SCH ×2 (09:21→16:54)
[2021-05-06] MEDS: LIPITOR PO SCH (09:21)
[2021-05-06] MEDS: NEURONTIN PO SCH (09:21)
[2021-05-06] MEDS: LOPRESSOR PO SCH ×2 (09:21→20:27)
[2021-05-06] MEDS: DECADRON IVP SCH (09:57)
[2021-05-06] MEDS: TYLENOL PO PRN (11:01)
[2021-05-06] MEDS: VEKLURY 100 MG in SODIUM CHLORIDE 250 ML IV SCH (11:57)
[2021-05-07 05:35] LABS: ANISOCYTOSIS NOT PRESENT (NOT PRESENT); HEMATOCRIT 40.9 % (37.0-47.0); HEMOGLOBIN 13.3 g/dl (12.0-16.0); MEAN CORPUSCULAR HEMOGLOBIN 27.8 pg (27.0-31.0); MEAN CORPUSCULAR HGB CONC 32.5 (31.8-35.4); MEAN CORPUSCULAR VOLUME 85.4 fl (81.0-99.0); PLATELET COUNT 403 10^3/uL (140-440); RDW COEFFICIENT OF VARIATION 12.2 % (11.6-14.8); RED BLOOD COUNT 4.79 10^6/ul (4.20-5.40); WHITE BLOOD COUNT 17.99 K/ul (4.6-10.2)
[2021-05-07] MEDS: VENTOLIN HFA (PER PUFF-WITH SPACER) IH SCH (05:35)
[2021-05-07] MEDS: PEPCID PO SCH (05:53)
[2021-05-07 06:06] LABS: PROTHROMBIN TIME 11.1 SEC (9.3-11.0)
[2021-05-07 06:16] VITALS: BP 113/63; TEMP 98
[2021-05-07 06:18] LABS: C-REACTIVE PROTEIN 2 mg/L (0-10)
[2021-05-07 07:51] LABS: TROPONIN I < 0.012 ng/ml (0.0000-0.120)
[2021-05-07] MEDS: ASTELIN 0.1% NAS SCH (08:38)
[2021-05-07] MEDS: DECADRON IVP SCH (08:39)
[2021-05-07] MEDS: SYMBICORT 160-4.5 MCG INHALER IH SCH (08:39)
[2021-05-07] MEDS: VITAMIN D PO SCH (08:40)
[2021-05-07] MEDS: LOPRESSOR PO SCH (08:40)
[2021-05-07] MEDS: CLARITIN PO SCH (08:40)
[2021-05-07] MEDS: GLUCOPHAGE PO SCH (08:41)
[2021-05-07] MEDS: LIPITOR PO SCH (08:41)
[2021-05-07] MEDS: NEURONTIN PO SCH (08:41)
[2021-05-07] MEDS: ZINC-220 PO SCH (08:41)
[2021-05-07] MEDS: LOVENOX SUBCUT SCH (08:42)
[2021-05-07] MEDS ORDERED: CYMBALTA PO SCH (09:00)
--- NOTE | 2021-05-07 14:35 | PCM.DC ---
Final Diagnosis: Date of admit: 04/30/2021 Date of discharge 05/07/2021 Admit - Covid pneumonia with hypoxia. Discharge - COVID pneumonia without hypoxia. Reason for Hospitalization: HPI - admitted for COVID pneumonia with hypoxia, O2 sat in 80's requiring oxygen. Prognosis/Condition at Discharge: Good. Stable. Medications at Discharge: Ambulatory Orders Medication Instructions Recorded metoprolol tartrate 25 mg tablet 25 mg PO BID 10/31/12 cetirizine 10 mg tablet (Zyrtec) 10 mg PO DAILY 05/04/14 atorvastatin 10 mg tablet (Lipitor) 10 mg PO DAILY 04/05/15 azelastine 137 mcg (0.1 %) nasal 1 spray NS DAILY 04/10/16 spray aerosol (Astelin) duloxetine 30 mg capsule,delayed 30 mg PO DAILY tab-cap 06/26/17 release gabapentin 300 mg capsule 300 mg PO DAILY tab-cap 06/26/17 metformin 500 mg tablet 500 mg PO BID 04/30/21 albuterol sulfate 90 mcg/actuation 2 puff INHALATION QID PRN #8.5 g 05/07/21 aerosol inhaler Lab/Diagnostics: Laboratory Tests 04/30/21 04/30/21 04/30/21 07:30 08:50 08:50 WBC 5.61 RBC 4.47 Hgb 12.6 Hct 38.7 MCV 86.6 MCH 28.2 MCHC 32.6 RDW Coeff of Tiffanie 12.7 Plt Count 167 Immature Gran % (Auto) 1.1 Neut % (Auto) 68.2 Lymph % (Auto) 22.3 [place]oun % (Auto) 8.2 Eos % (Auto) 0.0 Baso % (Auto) 0.2 Neut # (Auto) 3.8 Lymph # (Auto) 1.3 [place]oun # (Auto) 0.5 Eos # (Auto) 0.0 Baso # (Auto) 0.0 Immature Gran # (Auto) 0.1 Neutrophils % (Manual) Lymphocytes % (Manual) Monocytes % (Manual) Metamyelocytes % Anisocytosis PT INR Puncture Site Base Excess O2 Saturation ABG pH ABG pCO2 ABG pO2 ABG HCO3 ABG Total CO2 Carlos Test Hemoglobin Oxyhemoglobin Carboxyhemoglobin Total Hemoglobin O2 Delivery Device Oxygen Liter Flow FiO2 % Sodium 138.2 Potassium 3.89 Chloride 100.4 Carbon Dioxide 30.7 H Anion Gap 10.99 BUN 16.1 Creatinine 0.67 Estimated GFR (MDRD) 89.00 BUN/Creatinine Ratio 24.02 Glucose 122.0 H Calcium 8.75 Ferritin Total Bilirubin 0.35 AST 84.6 H ALT 104.1 H Alkaline Phosphatase 82.3 Lactate Dehydrogenase Troponin I C-Reactive Prot, Quant Total Protein 7.64 Albumin 4.61 Globulin 3.03 Albumin/Globulin Ratio 1.52 D-Dimer SARS CoV-2 RNA Rapid FRANC Positive H 04/30/21 05/01/21 05/01/21 10:40 07:14 07:14 WBC 6.39 RBC 4.10 L Hgb 11.6 L Hct 36.4 L MCV 88.8 MCH 28.3 MCHC 31.9 RDW Coeff of Tiffanie 12.6 Plt Count 161 Immature Gran % (Auto) 1.3 Neut % (Auto) 71.6 Lymph % (Auto) 17.7 [place]oun % (Auto) 9.2 Eos % (Auto) 0.0 Baso % (Auto) 0.2 Neut # (Auto) 4.6 Lymph # (Auto) 1.1 [place] # (Auto) 0.6 Eos # (Auto) 0.0 Baso # (Auto) 0.0 Immature Gran # (Auto) 0.1 Neutrophils % (Manual) Lymphocytes % (Manual) Monocytes % (Manual) Metamyelocytes % Anisocytosis PT 9.6 INR 0.92 Puncture Site Rr Base Excess 3.6 H O2 Saturation 90.1 L ABG pH 7.43 ABG pCO2 42.0 ABG pO2 57.0 L* ABG HCO3 27.9 ABG Total CO2 29.2 H Carlos Test Pos Hemoglobin 0.5 Oxyhemoglobin 90.3 L Carboxyhemoglobin 0 L Total Hemoglobin 12.1 O2 Delivery Device Oxygen Liter Flow FiO2 % 21.0 Sodium Potassium Chloride Carbon Dioxide Anion Gap BUN Creatinine Estimated GFR (MDRD) BUN/Creatinine Ratio Glucose Calcium Ferritin Total Bilirubin AST ALT Alkaline Phosphatase Lactate Dehydrogenase Troponin I C-Reactive Prot, Quant Total Protein Albumin Globulin Albumin/Globulin Ratio D-Dimer SARS CoV-2 RNA Rapid FRANC 05/01/21 05/02/21 05/02/21 07:14 04:30 04:30 WBC 11.26 H RBC 3.91 L Hgb 11.3 L Hct 35.0 L MCV 89.5 MCH 28.9 MCHC 32.3 RDW Coeff of Tiffanie 12.6 Plt Count 184 Immature Gran % (Auto) 1.0 Neut % (Auto) 79.5 H Lymph % (Auto) 13.0 [place]oun % (Auto) 6.2 Eos % (Auto) 0.0 Baso % (Auto) 0.3 Neut # (Auto) 9.0 H Lymph # (Auto) 1.5 [place]oun # (Auto) 0.7 Eos # (Auto) 0.0 Baso # (Auto) 0.0 Immature Gran # (Auto) 0.1 Neutrophils % (Manual) Lymphocytes % (Manual) Monocytes % (Manual) Metamyelocytes % Anisocytosis PT 9.4 INR 0.90 Puncture Site Base Excess O2 Saturation ABG pH ABG pCO2 ABG pO2 ABG HCO3 ABG Total CO2 Carlos Test Hemoglobin Oxyhemoglobin Carboxyhemoglobin Total Hemoglobin O2 Delivery Device Oxygen Liter Flow FiO2 % Sodium 141.2 Potassium 3.94 Chloride 110.9 H Carbon Dioxide 25.9 Anion Gap 8.34 BUN 17.9 H Creatinine 0.48 L Estimated GFR (MDRD) 131.00 BUN/Creatinine Ratio 37.29 Glucose 117.7 H Calcium 8.53 Ferritin Total Bilirubin 0.29 AST 52.5 H D ALT 75.8 H Alkaline Phosphatase 67.2 Lactate Dehydrogenase Troponin I C-Reactive Prot, Quant Total Protein 6.79 Albumin 3.97 Globulin 2.82 Albumin/Globulin Ratio 1.40 D-Dimer SARS CoV-2 RNA Rapid FRANC 05/02/21 05/02/21 05/02/21 04:30 04:30 04:30 WBC RBC Hgb Hct MCV MCH MCHC RDW Coeff of Tiffanie Plt Count Immature Gran % (Auto) Neut % (Auto) Lymph % (Auto) [place] % (Auto) Eos % (Auto) Baso % (Auto) Neut # (Auto) Lymph # (Auto) [place] # (Auto) Eos # (Auto) Baso # (Auto) Immature Gran # (Auto) Neutrophils % (Manual) Lymphocytes % (Manual) Monocytes % (Manual) Metamyelocytes % Anisocytosis PT INR Puncture Site Base Excess O2 Saturation ABG pH ABG pCO2 ABG pO2 ABG HCO3 ABG Total CO2 Carlos Test Hemoglobin Oxyhemoglobin Carboxyhemoglobin Total Hemoglobin O2 Delivery Device Oxygen Liter Flow FiO2 % Sodium 143.2 Potassium 3.87 Chloride 111.5 H Carbon Dioxide 26.3 Anion Gap 9.27 BUN 16.5 Creatinine 0.57 L Estimated GFR (MDRD) 108.00 BUN/Creatinine Ratio 28.94 Glucose 113.1 H Calcium 8.52 Ferritin Total Bilirubin 0.25 AST 52.4 H ALT 74.8 H Alkaline Phosphatase 65.2 Lactate Dehydrogenase Troponin I < 0.012 C-Reactive Prot, Quant 5 Total Protein 6.34 Albumin 3.72 Globulin 2.62 Albumin/Globulin Ratio 1.41 D-Dimer SARS CoV-2 RNA Rapid FRANC 05/02/21 05/02/21 05/02/21 04:30 04:30 04:30 WBC RBC Hgb Hct MCV MCH MCHC RDW Coeff of Tiffanie Plt Count Immature Gran % (Auto) Neut % (Auto) Lymph % (Auto) [place] % (Auto) Eos % (Auto) Baso % (Auto) Neut # (Auto) Lymph # (Auto) [place] # (Auto) Eos # (Auto) Baso # (Auto) Immature Gran # (Auto) Neutrophils % (Manual) Lymphocytes % (Manual) Monocytes % (Manual) Metamyelocytes % Anisocytosis PT INR Puncture Site Base Excess O2 Saturation ABG pH ABG pCO2 ABG pO2 ABG HCO3 ABG Total CO2 Carlos Test Hemoglobin Oxyhemoglobin Carboxyhemoglobin Total Hemoglobin O2 Delivery Device Oxygen Liter Flow FiO2 % Sodium Potassium Chloride Carbon Dioxide Anion Gap BUN Creatinine Estimated GFR (MDRD) BUN/Creatinine Ratio Glucose Calcium Ferritin 274.00 H Total Bilirubin AST ALT Alkaline Phosphatase Lactate Dehydrogenase 243 H Troponin I C-Reactive Prot, Quant Total Protein Albumin Globulin Albumin/Globulin Ratio D-Dimer 285.15 SARS CoV-2 RNA Rapid FRANC 05/02/21 05/03/21 05/03/21 12:48 04:10 04:10 WBC 10.35 H RBC 3.86 L Hgb 11.0 L Hct 34.3 L MCV 88.9 MCH 28.5 MCHC 32.1 RDW Coeff of Tiffanie 12.5 Plt Count 213 Immature Gran % (Auto) 2.5 Neut % (Auto) 75.3 H Lymph % (Auto) 13.4 [place] % (Auto) 8.5 Eos % (Auto) 0.0 Baso % (Auto) 0.3 Neut # (Auto) 7.8 H Lymph # (Auto) 1.4 [place] # (Auto) 0.9 Eos # (Auto) 0.0 Baso # (Auto) 0.0 Immature Gran # (Auto) 0.3 Neutrophils % (Manual) Lymphocytes % (Manual) Monocytes % (Manual) Metamyelocytes % Anisocytosis PT INR Puncture Site Rrad Base Excess 0.1 O2 Saturation 96.5 ABG pH 7.42 ABG pCO2 38.0 ABG pO2 84.0 L ABG HCO3 24.6 ABG Total CO2 25.8 H Carlos Test Pos Hemoglobin 0 Oxyhemoglobin 94.2 L Carboxyhemoglobin 0.4 L Total Hemoglobin 11.9 O2 Delivery Device Cannula Oxygen Liter Flow 2.00 FiO2 % Sodium 142.3 Potassium 4.14 Chloride 107.6 H Carbon Dioxide 28.5 Anion Gap 10.34 BUN 19.1 H Creatinine 0.72 Estimated GFR (MDRD) 82.00 BUN/Creatinine Ratio 26.52 Glucose 109.6 H Calcium 8.75 Ferritin 271.00 H Total Bilirubin 0.29 AST 36.8 H ALT 62.6 H Alkaline Phosphatase 65.9 Lactate Dehydrogenase Troponin I < 0.012 C-Reactive Prot, Quant Total Protein 6.54 Albumin 3.67 Globulin 2.87 Albumin/Globulin Ratio 1.27 D-Dimer SARS CoV-2 RNA Rapid FRANC 05/03/21 05/03/21 05/03/21 04:10 04:10 04:10 WBC RBC Hgb Hct MCV MCH MCHC RDW Coeff of Tiffanie Plt Count Immature Gran % (Auto) Neut % (Auto) Lymph % (Auto) [place] % (Auto) Eos % (Auto) Baso % (Auto) Neut # (Auto) Lymph # (Auto) [place] # (Auto) Eos # (Auto) Baso # (Auto) Immature Gran # (Auto) Neutrophils % (Manual) Lymphocytes % (Manual) Monocytes % (Manual) Metamyelocytes % Anisocytosis PT 9.9 INR 0.95 Puncture Site Base Excess O2 Saturation ABG pH ABG pCO2 ABG pO2 ABG HCO3 ABG Total CO2 Carlos Test Hemoglobin Oxyhemoglobin Carboxyhemoglobin Total Hemoglobin O2 Delivery Device Oxygen Liter Flow FiO2 % Sodium Potassium Chloride Carbon Dioxide Anion Gap BUN Creatinine Estimated GFR (MDRD) BUN/Creatinine Ratio Glucose Calcium Ferritin Total Bilirubin AST ALT Alkaline Phosphatase Lactate Dehydrogenase 270 H Troponin I C-Reactive Prot, Quant 12 H Total Protein Albumin Globulin Albumin/Globulin Ratio D-Dimer 279.96 SARS CoV-2 RNA Rapid FRANC 05/03/21 05/04/21 05/04/21 06:37 04:40 04:40 WBC RBC Hgb Hct MCV MCH MCHC RDW Coeff of Tiffanie Plt Count Immature Gran % (Auto) Neut % (Auto) Lymph % (Auto) [place] % (Auto) Eos % (Auto) Baso % (Auto) Neut # (Auto) Lymph # (Auto) [place] # (Auto) Eos # (Auto) Baso # (Auto) Immature Gran # (Auto) Neutrophils % (Manual) Lymphocytes % (Manual) Monocytes % (Manual) Metamyelocytes % Anisocytosis PT 10.5 INR 1.01 Puncture Site Rrad Base Excess 2.4 O2 Saturation 90.6 L ABG pH 7.45 ABG pCO2 38.0 ABG pO2 57.0 L* ABG HCO3 26.4 ABG Total CO2 27.6 H Carlos Test Pos Hemoglobin 0 Oxyhemoglobin 90.6 L Carboxyhemoglobin 1.2 Total Hemoglobin 10.8 L O2 Delivery Device Cannula Oxygen Liter Flow 2.00 FiO2 % Sodium 140.7 Potassium 3.88 Chloride 106.7 Carbon Dioxide 26.9 Anion Gap 10.98 BUN 20.0 H Creatinine 0.56 L Estimated GFR (MDRD) 110.00 BUN/Creatinine Ratio 35.71 Glucose 115.5 H Calcium 8.89 Ferritin 301.00 H Total Bilirubin 0.29 AST 30.4 ALT 53.4 H Alkaline Phosphatase 65.8 Lactate Dehydrogenase Troponin I < 0.012 C-Reactive Prot, Quant Total Protein 6.53 Albumin 3.81 Globulin 2.72 Albumin/Globulin Ratio 1.40 D-Dimer SARS CoV-2 RNA Rapid FRANC 05/04/21 05/04/21 05/04/21 04:40 04:40 04:40 WBC 9.16 RBC 4.15 L Hgb 11.6 L Hct 35.8 L MCV 86.3 MCH 28.0 MCHC 32.4 RDW Coeff of Tiffanie 12.2 Plt Count 257 Immature Gran % (Auto) 8.3 H Neut % (Auto) 63.7 Lymph % (Auto) 16.7 [place] % (Auto) 10.4 H Eos % (Auto) 0.0 Baso % (Auto) 0.9 Neut # (Auto) 5.8 Lymph # (Auto) 1.5 [place] # (Auto) 1.0 Eos # (Auto) 0.0 Baso # (Auto) 0.1 Immature Gran # (Auto) 0.8 Neutrophils % (Manual) Lymphocytes % (Manual) Monocytes % (Manual) Metamyelocytes % Anisocytosis PT INR Puncture Site Base Excess O2 Saturation ABG pH ABG pCO2 ABG pO2 ABG HCO3 ABG Total CO2 Carlos Test Hemoglobin Oxyhemoglobin Carboxyhemoglobin Total Hemoglobin O2 Delivery Device Oxygen Liter Flow FiO2 % Sodium Potassium Chloride Carbon Dioxide Anion Gap BUN Creatinine Estimated GFR (MDRD) BUN/Creatinine Ratio Glucose Calcium Ferritin Total Bilirubin AST ALT Alkaline Phosphatase Lactate Dehydrogenase 271 H Troponin I C-Reactive Prot, Quant 6 Total Protein Albumin Globulin Albumin/Globulin Ratio D-Dimer 331.22 SARS CoV-2 RNA Rapid FRANC 05/04/21 05/05/21 05/05/21 05:30 05:15 05:15 WBC RBC Hgb Hct MCV MCH MCHC RDW Coeff of Tiffanie Plt Count Immature Gran % (Auto) Neut % (Auto) Lymph % (Auto) [place] % (Auto) Eos % (Auto) Baso % (Auto) Neut # (Auto) Lymph # (Auto) [place] # (Auto) Eos # (Auto) Baso # (Auto) Immature Gran # (Auto) Neutrophils % (Manual) Lymphocytes % (Manual) Monocytes % (Manual) Metamyelocytes % Anisocytosis PT 10.9 INR 1.05 Puncture Site Rbrach Base Excess 2.4 O2 Saturation 91.0 L ABG pH 7.45 ABG pCO2 38.0 ABG pO2 58.0 L* ABG HCO3 26.4 ABG Total CO2 27.6 H Carlos Test Pos Hemoglobin 0.3 Oxyhemoglobin 89.9 L Carboxyhemoglobin 0.2 L Total Hemoglobin 12.0 O2 Delivery Device Cannula Oxygen Liter Flow 3.00 FiO2 % Sodium 139.8 Potassium 4.10 Chloride 106.2 Carbon Dioxide 25.8 Anion Gap 11.90 BUN 22.6 H Creatinine 0.53 L Estimated GFR (MDRD) 117.00 BUN/Creatinine Ratio 42.64 Glucose 127.1 H Calcium 8.83 Ferritin Total Bilirubin 0.43 AST 29.8 ALT 53.3 H Alkaline Phosphatase 62.4 Lactate Dehydrogenase Troponin I C-Reactive Prot, Quant Total Protein 6.54 Albumin 3.77 Globulin 2.77 Albumin/Globulin Ratio 1.36 D-Dimer SARS CoV-2 RNA Rapid FRANC 05/05/21 05/05/21 05/05/21 05:15 05:15 05:15 WBC RBC Hgb Hct MCV MCH MCHC RDW Coeff of Tiffanie Plt Count Immature Gran % (Auto) Neut % (Auto) Lymph % (Auto) [place] % (Auto) Eos % (Auto) Baso % (Auto) Neut # (Auto) Lymph # (Auto) [place] # (Auto) Eos # (Auto) Baso # (Auto) Immature Gran # (Auto) Neutrophils % (Manual) Lymphocytes % (Manual) Monocytes % (Manual) Metamyelocytes % Anisocytosis PT INR Puncture Site Base Excess O2 Saturation ABG pH ABG pCO2 ABG pO2 ABG HCO3 ABG Total CO2 Carlos Test Hemoglobin Oxyhemoglobin Carboxyhemoglobin Total Hemoglobin O2 Delivery Device Oxygen Liter Flow FiO2 % Sodium Potassium Chloride Carbon Dioxide Anion Gap BUN Creatinine Estimated GFR (MDRD) BUN/Creatinine Ratio Glucose Calcium Ferritin 272.00 H Total Bilirubin AST ALT Alkaline Phosphatase Lactate Dehydrogenase 292 H Troponin I < 0.012 C-Reactive Prot, Quant 3 Total Protein Albumin Globulin Albumin/Globulin Ratio D-Dimer 314.64 SARS CoV-2 RNA Rapid FRANC 05/05/21 05/06/21 05/06/21 07:06 05:55 05:55 WBC RBC Hgb Hct MCV MCH MCHC RDW Coeff of Tiffanie Plt Count Immature Gran % (Auto) Neut % (Auto) Lymph % (Auto) [place] % (Auto) Eos % (Auto) Baso % (Auto) Neut # (Auto) Lymph # (Auto) [place] # (Auto) Eos # (Auto) Baso # (Auto) Immature Gran # (Auto) Neutrophils % (Manual) Lymphocytes % (Manual) Monocytes % (Manual) Metamyelocytes % Anisocytosis PT 11.0 INR 1.06 Puncture Site R rad Base Excess 0.9 O2 Saturation 94.7 ABG pH 7.43 ABG pCO2 38.0 ABG pO2 72.0 L ABG HCO3 25.2 ABG Total CO2 26.4 H Carlos Test Y Hemoglobin 0.1 Oxyhemoglobin 93.4 L Carboxyhemoglobin 0.5 Total Hemoglobin 12.1 O2 Delivery Device Cannula Oxygen Liter Flow 3.00 FiO2 % Sodium 138.9 Potassium 4.01 Chloride 104.9 Carbon Dioxide 27.3 Anion Gap 10.71 BUN 21.9 H Creatinine 0.60 Estimated GFR (MDRD) 102.00 BUN/Creatinine Ratio 36.50 Glucose 112.5 H Calcium 9.18 Ferritin Total Bilirubin 0.46 AST 30.4 ALT 48.9 H Alkaline Phosphatase 62.9 Lactate Dehydrogenase Troponin I C-Reactive Prot, Quant Total Protein 6.81 Albumin 3.91 Globulin 2.90 Albumin/Globulin Ratio 1.34 D-Dimer SARS CoV-2 RNA Rapid FRANC 05/06/21 05/06/21 05/06/21 05:55 05:55 05:55 WBC RBC Hgb Hct MCV MCH MCHC RDW Coeff of Tiffanie Plt Count Immature Gran % (Auto) Neut % (Auto) Lymph % (Auto) [place] % (Auto) Eos % (Auto) Baso % (Auto) Neut # (Auto) Lymph # (Auto) [place] # (Auto) Eos # (Auto) Baso # (Auto) Immature Gran # (Auto) Neutrophils % (Manual) Lymphocytes % (Manual) Monocytes % (Manual) Metamyelocytes % Anisocytosis PT INR Puncture Site Base Excess O2 Saturation ABG pH ABG pCO2 ABG pO2 ABG HCO3 ABG Total CO2 Carlos Test Hemoglobin Oxyhemoglobin Carboxyhemoglobin Total Hemoglobin O2 Delivery Device Oxygen Liter Flow FiO2 % Sodium Potassium Chloride Carbon Dioxide Anion Gap BUN Creatinine Estimated GFR (MDRD) BUN/Creatinine Ratio Glucose Calcium Ferritin 218.00 Total Bilirubin AST ALT Alkaline Phosphatase Lactate Dehydrogenase 289 H Troponin I < 0.012 C-Reactive Prot, Quant 2 Total Protein Albumin Globulin Albumin/Globulin Ratio D-Dimer 324.97 SARS CoV-2 RNA Rapid FRANC 05/07/21 05/07/21 05/07/21 04:54 04:54 04:54 WBC 17.99 H RBC 4.79 Hgb 13.3 Hct 40.9 MCV 85.4 MCH 27.8 MCHC 32.5 RDW Coeff of Tiffanie 12.2 Plt Count 403 Immature Gran % (Auto) Neut % (Auto) Lymph % (Auto) [place] % (Auto) Eos % (Auto) Baso % (Auto) Neut # (Auto) Lymph # (Auto) [place] # (Auto) Eos # (Auto) Baso # (Auto) Immature Gran # (Auto) Neutrophils % (Manual) 69.0 Lymphocytes % (Manual) 20.0 Monocytes % (Manual) 5.0 Metamyelocytes % 6.0 H Anisocytosis Not present PT 11.1 H INR 1.07 Puncture Site Base Excess O2 Saturation ABG pH ABG pCO2 ABG pO2 ABG HCO3 ABG Total CO2 Carlos Test Hemoglobin Oxyhemoglobin Carboxyhemoglobin Total Hemoglobin O2 Delivery Device Oxygen Liter Flow FiO2 % Sodium Potassium Chloride Carbon Dioxide Anion Gap BUN Creatinine Estimated GFR (MDRD) BUN/Creatinine Ratio Glucose Calcium Ferritin Total Bilirubin AST ALT Alkaline Phosphatase Lactate Dehydrogenase Troponin I C-Reactive Prot, Quant Total Protein Albumin Globulin Albumin/Globulin Ratio D-Dimer 270.90 SARS CoV-2 RNA Rapid FRANC 05/07/21 04:54 WBC RBC Hgb Hct MCV MCH MCHC RDW Coeff of Tiffanie Plt Count Immature Gran % (Auto) Neut % (Auto) Lymph % (Auto) [place] % (Auto) Eos % (Auto) Baso % (Auto) Neut # (Auto) Lymph # (Auto) [place] # (Auto) Eos # (Auto) Baso # (Auto) Immature Gran # (Auto) Neutrophils % (Manual) Lymphocytes % (Manual) Monocytes % (Manual) Metamyelocytes % Anisocytosis PT INR Puncture Site Base Excess O2 Saturation ABG pH ABG pCO2 ABG pO2 ABG HCO3 ABG Total CO2 Carlos Test Hemoglobin Oxyhemoglobin Carboxyhemoglobin Total Hemoglobin O2 Delivery Device Oxygen Liter Flow FiO2 % Sodium 138.0 Potassium 4.00 Chloride 102.0 Carbon Dioxide 28.0 Anion Gap 12.00 BUN 20.0 H Creatinine 0.50 L Estimated GFR (MDRD) 125.00 BUN/Creatinine Ratio 40.00 Glucose 117.0 H Calcium 8.90 Ferritin 220.00 Total Bilirubin 0.50 AST 34.0 ALT 65.0 H Alkaline Phosphatase 60.0 Lactate Dehydrogenase Troponin I < 0.012 C-Reactive Prot, Quant Total Protein 6.80 Albumin 3.90 Globulin 2.90 Albumin/Globulin Ratio 1.34 D-Dimer SARS CoV-2 RNA Rapid FRANC EXAM: CTA chest for PE HISTORY: COVID-19 patient with hypoxia COMPARISON: Chest x-ray same day and multiple priors TECHNIQUE: CTA of the chest was performed from the lung apices to the upper abdomen after 75 ml of Omnipaque IV contrast was administered using PE protocol. 3-D imaging was also provided. FINDINGS: There is no filling defect in the pulmonary arteries to the level of the subsegmental pulmonary arteries. The heart is normal without signs of ventricular strain. The aorta is unremarkable. The thyroid is heterogeneous and mildly enlarged. The heart is normal without pericardial fluid. There are nonenlarged mediastinal and hilar lymph nodes. There is no pneumothorax or effusion. There is severe emphysema with bibasilar atelectasis. There is no abnormal ground-glass. The airways are patent Limited views of the soft tissues in the upper abdomen are unremarkable. The osseous structures demonstrate multilevel degenerative disease. IMPRESSION: Note - No PE. later addendum clarified that. 1. Pulmonary embolism. 2. Severe emphysema with bibasilar atelectasis. Education Provided to Patient and Family: COVID-19 Follow-ups: PCP next week. Return to hospital for any worsening symptoms. Discharge Disposition: Home Hospital Course: Admitted through ED with COVID a few days, then pneumonia and mild hypoxia treated with O2 per NC. Patient recieved Regernon IV along with steroids, abx, and albuterol prn. Steady improvement, passed RT 3 step, O2 sat 92-94 range on RA at d/c. Ready for D/C today. Diet and activity as tolerated. Physical exam - Alert, NAD. VSS, afeb. HEENT - WNL Heart - RRR with no m Lungs - dec. BS with no wheezes Abd - soft, nl BS Ext intact without edema. Neuro - intact Skin- WNL Plan: D/C home. Only new Rx needed is albuterol MDI prn. See PCP next week, contagious period over. This d/c done by me [id number] with patient, all told involved 30 minutes to complete.
[2021-05-08 08:16] LABS: C-REACTIVE PROTEIN 2 mg/L (0-10)
== END 2021-05-07 12:50 | disposition home or self-care (01) | DRG 177 ==
LOC: ED 08:52 → MEDSURG B 15:59
PROVIDERS: ADMIT Emergency Medicine; ATTEND Emergency Medicine